=== PATIENT | male | born 1970 | race Caucasian/White ===

== ENCOUNTER 2017-09-06 22:15 | Emergency (ER) | payer SELFPAY ==
[~2017-09-06] VITALS: Ht 185.4 cm; Wt 92.6 kg
[~2017-09-06 22:15] MED LIST: KEFLEX500 MG PO; LOW DOSE ASPIRI81 M1 PO; OXYCODONE HCL10 MG PO
[2017-09-06 23:06] LABS: HEMATOCRIT 46.4 % (38.0-50.0); MCH 32.3 PG (29.0-34.0); MCHC 34.5 G/DL (30.0-36.0); MCV 93.7 FL (86-99); PLATELET COUNT 223 K/uL (156-360); RBC DIS.WIDTH-CV 12.5 % (11.8-14.6); RBC DIS.WIDTH-SD 43.4 % (39-53); RED BLOOD COUNT 4.95 M/uL (4.00-5.50); WHITE BLOOD COUNT 12.1 K/uL (4.1-10.2)
[2017-09-06 23:18] LABS: CHLORIDE 106 mEq/L (99-109); POTASSIUM 4.3 mEq/L (3.7-5.4); SODIUM 139 mEq/L (136-147)
[2017-09-06 23:19] LABS: GLUCOSE 92 mg/dL (70-99)
[2017-09-06 23:23] LABS: CREATININE 1.2 mg/dL (0.6-1.3); GFR ESTIMATE (CALCULATED) > 59 mL/min/ (58.99-99999)
[2017-09-06 23:24] LABS: UREA NITROGEN (BUN) 13 mg/dL (9-23)
[2017-09-07] MEDS ORDERED: ATARAX,VISTARIL25 MG PO (00:16)
[2017-09-07 00:31] VITALS: BP 119/87
== END 2017-09-07 00:31 | disposition home or self-care (01) ==
LOC: EME 22:15
DX: F43.9 Reaction to severe stress, unspecified (principal); R20.2 Paresthesia of skin; R07.9 Chest pain, unspecified; F17.200 Nicotine dependence, unspecified, uncomplicated; Z85.828 Personal history of other malignant neoplasm of skin
CPT/HCPCS: 80048; 85027; 93005; 99281; 99284

== ENCOUNTER 2017-09-20 20:25 | Emergency (ER) | payer SELFPAY ==
[~2017-09-20] VITALS: Ht 185.4 cm; Wt 91.9 kg
[~2017-09-20 20:25] MED LIST changes: +ATARAX,VISTARIL25 MG PO
[2017-09-20 21:55] LABS: BASOPHIL (%) 0.6 % (0-1); EOSINOPHIL (%) 1.8 % (0-5); EOSINOPHIL COUNT 0.1 K/uL (0-0.3); HEMATOCRIT 43.1 % (38.0-50.0); HEMOGLOBIN 14.9 G/DL (12.5-16.6); IMMATURE GRANULOCYTE (%) 0.3 % (0.0-0.7); LYMPHOCYTE (%) 33.6 % (15-42); LYMPHOCYTE COUNT 2.4 K/uL (1.0-2.8); MCH 32.3 PG (29.0-34.0); MCHC 34.6 G/DL (30.0-36.0); MCV 93.5 FL (86-99); MONOCYTE (%) 7.5 % (3-12); MONOCYTE COUNT 0.5 K/uL (0-0.8); NEUTROPHIL (%) 56.2 % (45-76); NEUTROPHIL COUNT 4.1 K/uL (1.8-6.4); PLATELET COUNT 190 K/uL (156-360); RBC DIS.WIDTH-CV 12.3 % (11.8-14.6); RBC DIS.WIDTH-SD 42.7 % (39-53); RED BLOOD COUNT 4.61 M/uL (4.00-5.50); WHITE BLOOD COUNT 7.2 K/uL (4.1-10.2)
[2017-09-20 22:05] LABS: ALBUMIN 3.8 g/dL (3.2-4.8); CHLORIDE 109 mEq/L (99-109); POTASSIUM 3.6 mEq/L (3.7-5.4); SODIUM 140 mEq/L (136-147)
[2017-09-20 22:08] LABS: GLUCOSE 89 mg/dL (70-99); TOTAL PROTEIN 6.4 g/dL (6.4-8.3)
[2017-09-20 22:10] LABS: TOTAL BILIRUBIN 0.4 mg/dL (0.0-1.0)
[2017-09-20 22:11] LABS: SERUM ETHYL ALCOHOL < 10 mg/dL
[2017-09-20 22:12] LABS: ALKALINE PHOSPHATASE 49 IU/L (3-129); CREATININE 1.1 mg/dL (0.6-1.3); GFR ESTIMATE (CALCULATED) > 59 mL/min/ (58.99-99999)
[2017-09-20 22:13] LABS: AST (GOT) 14 IU/L (2-34)
[2017-09-20 22:14] LABS: UREA NITROGEN (BUN) 16 mg/dL (9-23)
[2017-09-20 22:15] LABS: ALT (GPT) 9 IU/L (3-49); SALICYLATE < 5.0 MG/DL (15-30)
[2017-09-20 22:16] LABS: ACETAMINOPHEN (TYLENOL) < 10 mcg/mL (10-30)
[2017-09-20 22:26] LABS: APPEARANCE CLEAR ((CLEAR)); BILIRUBIN NEGATIVE; BLOOD SMALL; COLOR YELLOW ((YELLOW)); GLUCOSE (STRIP) NEGATIVE; KETONES NEGATIVE; LEUKOCYTES NEGATIVE; NITRITE NEGATIVE; PROTEIN (STRIP) NEGATIVE; SPECIFIC GRAVITY 1.013 (1.000-1.030); UROBILINOGEN 0.2 MG/DL (0.2-1.0)
[2017-09-20 22:43] LABS: BACTERIA NONE SEEN /HPF; EPITHELIAL CELLS RARE /HPF; MUCUS TRACE /LPF; RED BLOOD CELLS 0-5 /HPF (0-5); UCUL ADDED? NO; WHITE BLOOD CELLS 0-5 /HPF (0-5)
[2017-09-20 22:51] LABS: AMPHETAMINE NEGATIVE (500 ng/mL); BARBITURATES NEGATIVE (200 ng/mL); BENZODIAZEPINES NEGATIVE (150 ng/mL); BUPRENORPHINE NEGATIVE (10 ng/mL); COCAINE NEGATIVE (150 ng/mL); METHADONE NEGATIVE (200 ng/mL); METHAMPHETAMINE NEGATIVE (500 ng/mL); OPIATES (MORPHINE) PRESUMPTIVE POSITIVE (100 ng/mL); OXYCODONE PRESUMPTIVE POSITIVE (100 ng/mL); PHENCYCLIDINE NEGATIVE (25 ng/mL); PROPOXYPHENE NEGATIVE (300 ng/mL); THC CANNABINOIDS NEGATIVE (50 ng/mL); TRICYCLIC ANTIDEPRESSANTS NEGATIVE (300 ng/mL)
[2017-09-20] MEDS ORDERED: NARCAN4 MG NS (23:06)
[2017-09-20 23:27] VITALS: BP 106/73
== END 2017-09-20 23:28 | disposition home or self-care (01) ==
LOC: EME 20:25
PROVIDERS: Emergency Medicine
DX: T40.2X1A Poisoning by other opioids, accidental (unintentional), initial encounter (principal); G89.29 Other chronic pain; F17.200 Nicotine dependence, unspecified, uncomplicated; Z85.828 Personal history of other malignant neoplasm of skin
CPT/HCPCS: 80053; 81003; 84999; 85025; 93005; 99281; 99284; G0480

== ENCOUNTER 2018-02-15 04:09 | Emergency (ER) | payer SELFPAY ==
[~2018-02-15] VITALS: Ht 185.4 cm; Wt 82.0 kg
[~2018-02-15 04:09] MED LIST changes: +NARCAN4 MG NS
[2018-02-15 05:28] LABS: MCH 33.2 PG (29.0-34.0); MCHC 35.6 G/DL (30.0-36.0); MCV 93.4 FL (86-99); PLATELET COUNT 227 K/uL (156-360); RBC DIS.WIDTH-CV 12.8 % (11.8-14.6); RED BLOOD COUNT 4.82 M/uL (4.00-5.50); WHITE BLOOD COUNT 10.6 K/uL (4.1-10.2)
[2018-02-15 05:39] LABS: CHLORIDE 107 mEq/L (99-109); POTASSIUM 4.7 mEq/L (3.7-5.4); SODIUM 140 mEq/L (136-147)
[2018-02-15 05:41] LABS: GLUCOSE 105 mg/dL (70-99)
[2018-02-15 05:44] LABS: CREATININE 1.1 mg/dL (0.6-1.3); GFR ESTIMATE (CALCULATED) > 59 mL/min/ (58.99-99999); SERUM ETHYL ALCOHOL < 10 mg/dL
[2018-02-15 05:45] LABS: UREA NITROGEN (BUN) 15 mg/dL (9-23)
[2018-02-15 06:44] VITALS: BP 150/82
[2018-02-15 06:59] LABS: ACETAMINOPHEN (TYLENOL) < 10 mcg/mL (10-30); SALICYLATE < 5.0 MG/DL (15-30)
== END 2018-02-15 06:44 | disposition home or self-care (01) ==
LOC: EME 04:09
PROVIDERS: Emergency Medicine
DX: F32.9 Major depressive disorder, single episode, unspecified (principal); F41.9 Anxiety disorder, unspecified; F17.200 Nicotine dependence, unspecified, uncomplicated; Z85.828 Personal history of other malignant neoplasm of skin; Z87.19 Personal history of other diseases of the digestive system
CPT/HCPCS: 80048; 81003; 85027; 90839; 99281; 99284; G0480